=== PATIENT | male | born 1950 | race Caucasian/White ===

== ENCOUNTER 2021-01-01 04:36 | Emergency (ER) | payer MEDICARE ==
[~2021-01-01] VITALS: Ht 177 cm; Wt 79.0 kg
[2021-01-01] MEDS ORDERED: IBUPROFEN TABLET 200 MG TAB PO ONE (05:00)
--- NOTE | 2021-01-01 05:01 | ED EENT ---
History of Present Illness General Stated Complaint: SORE THROAT/FEVER Source: patient, family Exam Limitations: no limitations History of Present Illness Date Seen by Provider: Jan 01, 2021 Time Seen by Provider: 04:50 Initial Comments Patient is a 70-year-old male who presents to the emergency department today with a chief complaint of headache and sore throat. Patient states he is headache and sore throat had him just shortly after supper last night. Patient states that he took some extra strength Tylenol at about 1130 last night. He complains of low-grade temperature. He is concerned that he might have Covid even though he is fully vaccinated. Patient denies any cough, shortness of breath, abdominal pain, nausea, vomiting, diarrhea. No rashes. No sick contacts. Both he and his are traveling from out [place], [place]. They have been to multiple areas including [place] as well as [place] etc. They are here visiting friends. All other review of systems reviewed and negative except as stated above. Timing/Duration: abrupt Severity: moderate Location: throat, other (Headache) Associated Symptoms: nasal congestion/drainage (Mild), sore throat Allergies and Home Medications Allergies Coded Allergies: No Known Drug Allergies (Unverified , 01/01/21) Patient Home Medication List Home Medication List Reviewed: Yes Review of Systems Review of Systems Constitutional: see HPI Eyes: No Symptoms Reported Nose: other (Mild congestion) Mouth: no symptoms reported Throat: pain Respiratory: no symptoms reported Cardiovascular: no symptoms reported Gastrointestinal: no symptoms reported Musculoskeletal: no symptoms reported Skin: no symptoms reported Neurological: Headache All Other Systems Reviewed Negative Unless Noted: Yes Physical Exam Vital Signs Vital Signs - First Documented 01/01/21 04:46 Temp 37.5 Pulse 87 Resp 20 B/P (MAP) 134/105 (115) Pulse Ox 97 O2 Delivery Room Air Height, Weight, BMI Height: '" Weight: lbs. oz. kg; BMI Method: General Appearance: WD/WN Eyes: bilateral eye normal inspection, bilateral eye PERRL, bilateral eye EOMI Ears: bilateral ear auricle normal, bilateral ear canal normal, bilateral ear TM normal Nose: normal inspection Mouth/Throat: other (Mild pharyngeal erythema) Neck: full range of motion, supple, normal inspection Cardiovascular: regular rate, rhythm Respiratory: normal breath sounds, no respiratory distress, no accessory muscle use Neurologic/Psychiatric: molding fitter II-XII nml as tested, no motor/sensory deficits, alert, normal mood/affect, oriented x 3 Skin: normal color, warm/dry Progress/Results/Core Measures Results/Orders Lab Results Laboratory Tests Test 01/01/21 04:55 Range/Units SARS-CoV-2 RNA (RT-PCR) Detected H Not Detecte My Orders Orders - CHANDLER HER MD Covid 19 Inhouse Test (01/01/21 04:54) Ibuprofen Tablet (Motrin Tablet) (01/01/21 05:00) Medications Given in ED Current Medications Medications Dose Ordered Sig/Mich Route Start Time Stop Time Status Last Admin Dose Admin Ibuprofen 400 mg ONCE ONCE PO 01/01/21 05:00 01/01/21 05:01 DC 01/01/21 05:02 400 MG Vital Signs/I&O 01/01/21 01/01/21 04:46 04:46 Temp 37.5 Pulse 87 Resp 20 B/P (MAP) 134/105 (115) Pulse Ox 97 O2 Delivery Room Air Room Air Progress Progress Note : Time: 05:36 Progress Note Patient is Covid positive today. He was vaccinated at the end of July and mid August. His vital signs are stable. His oxygen saturations are 99% on room air. He is in no respiratory distress. He does have a very slight dry cough. Continues to have a little bit of headache and sore throat after the ibuprofen. I have counseled his and the patient on quarantine for 10 days. I have advised plenty of fluids and alternating Tylenol and ibuprofen. They verbalized understanding. All questions are sought and answered. Patient is stable for discharge. Departure Impression Primary Impression: COVID-19 Disposition: 01 HOME, SELF-CARE Condition: Stable Departure-Patient Inst. Decision time for Depature: 05:37 Referrals: NO,LOCAL PHYSICIAN (PCP/Family) Primary Care Physician Patient Instructions: COVID-19 (DC) Add. Discharge Instructions: Drink plenty of fluids to stay well-hydrated. You can alternate Tylenol and ibuprofen. You can take up to 3 tablets of ibuprofen which is 600 mg every 4-6 hours with food as needed for headache and sore throat. Quarantine for 10 days. Return to the emergency department for any new, concerning or emergent symptoms. CHANDLER HER MD Jan 01, 2021 05:01
[2021-01-01 06:18] VITALS: BP 134/70
== END 2021-01-01 06:18 | disposition home or self-care (01) ==
LOC: ER 04:38
DX: U07.1 COVID-19 (principal)
CPT/HCPCS: 87636; 99283